=== PATIENT | female | born 1960 | race African-American/Black ===

== ENCOUNTER 2018-07-18 09:51 | Emergency (ER) | payer MEDICARE, MEDICAID ==
[~2018-07-18] VITALS: Ht 167.6 cm; Wt 110.0 kg
[~2018-07-18 09:51] MED LIST: LORA-250 PO; MIRT30TA PO
[2018-07-18 11:29] VITALS: BP 156/81
[2018-07-18] MEDS ORDERED: TRAMADOL 50MG TABLET PO ONE (11:30)
== END 2018-07-18 11:44 | disposition home or self-care (01) ==
LOC: ER 09:51
DX: M19.90 Unspecified osteoarthritis, unspecified site (principal); I25.10 Atherosclerotic heart disease of native coronary artery without angina pectoris; F32.9 Major depressive disorder, single episode, unspecified; I10 Essential (primary) hypertension; I25.2 Old myocardial infarction; F17.200 Nicotine dependence, unspecified, uncomplicated; Z88.6 Allergy status to analgesic agent
CPT/HCPCS: 99282; 99283

== ENCOUNTER → 2024-09-12 | Emergency (ER) | payer MEDICARE, MEDICAID ==
[~2024-09-12] VITALS: Ht 170.2 cm; Wt 91.0 kg
[~2024-09-12] MED LIST changes: +MIRT-145 PO; -MIRT30TA PO; +PRED5TAB48 MT
[2024-09-12 13:32] VITALS: PULSE 72; O2SAT 98
[2024-09-12 13:42] VITALS: BP 124/63; RESP 18; TEMP 98.5; O2SAT 100
[2024-09-12 15:01] LABS: BASOPHILS % 0.3 % (0.0-2.0); EOSINOPHILS % 1.1 % (0.0-5.0); HEMATOCRIT. 43.8 % (36.0-48.0); HEMOGLOBIN. 14.7 g/dL (12.0-16.0); LYMPHOCYTES % 20.4 % (20.0-50.0); MEAN CORPUSCULAR HEMOGLOBIN 31.5 pg (28.0-32.0); MEAN CORPUSCULAR HGB CONC 33.4 g/dL (31.0-37.0); MEAN CORPUSCULAR VOLUME 94.2 fL (81.0-99.0); MONOCYTES % 7.1 % (2.0-8.0); NEUTROPHILS % 71.1 % (40.0-76.0); RED BLOOD CELL COUNT 4.65 mill/uL (4.2-5.4); RED CELL DISTRIBUTION WIDTH 13.7 % (11.6-14.6)
[2024-09-12 15:08] LABS: CHLORIDE 106 mEq/L (98-107); POTASSIUM 4.8 mEq/L (3.5-5.1); SODIUM 136 mEq/L (136-145)
[2024-09-12 15:09] LABS: CARBON DIOXIDE 27 mEq/L (21-32)
[2024-09-12 15:10] LABS: CALCIUM 9.4 mg/dL (8.7-10.4)
[2024-09-12 15:14] LABS: CREATININE 1.2 mg/dL (0.6-1.0); GLUCOSE 111 mg/dL (70-105)
[2024-09-12 15:15] LABS: UREA NITROGEN BLOOD 22 mg/dL (9-23)
[2024-09-12 15:17] LABS: TROPONIN I HIGH SENSITIVITY 5 ng/L (3.0-34)
[2024-09-12 15:24] LABS: DIFFERENTIAL COMMENT 1
[2024-09-12 17:12] LABS: MEAN PLATELET VOLUME 8.1 fl (7.4-10.4); PLATELET 272 x1000/uL (130-400)
== END | disposition home or self-care (01) ==
LOC: ER 13:26
DX: R07.9 Chest pain, unspecified (principal); F17.210 Nicotine dependence, cigarettes, uncomplicated; F32.A Depression, unspecified; Z88.6 Allergy status to analgesic agent
CPT/HCPCS: 36415; 71045; 80048; 84484; 85025; 93005; 99285